=== PATIENT | female | born 1950 | race Caucasian/White ===

== ENCOUNTER → 2023-12-01 12:52 | Outpatient (REF) | payer MEDICARE, OTHER, SELFPAY ==
[2023-12-01 15:43] LABS: ALT (SGPT) 22 U/L (0-35); AST (SGOT) 33 U/L (14-36); Albumin 3.9 g/dl (3.5-5.0); Alkaline Phosphatase 73 U/L (38-126); Direct Bilirubin 0.9 mg/dl (0.0-0.4); Total Bilirubin 0.9 mg/dl (0.2-1.3); Total Protein 6.8 g/dl (6.3-8.2)
== END ==
LOC: HWLAB 12:52
PROVIDERS: ATTENDING PHYSICIAN Student in an Organized Health Care Education/Training Program; FAMILY PHYSICIAN Family Medicine
DX: I27.0 Primary pulmonary hypertension (principal)
CPT/HCPCS: 36415; 80076

== ENCOUNTER → 2023-12-30 12:39 | Outpatient (REF) | payer MEDICARE, OTHER, SELFPAY ==
[2023-12-30 15:56] LABS: ALT (SGPT) 19 U/L (0-35); AST (SGOT) 21 U/L (14-36); Albumin 3.6 g/dl (3.5-5.0); Alkaline Phosphatase 102 U/L (38-126); Direct Bilirubin 0.1 mg/dl (0.0-0.4); Total Bilirubin 0.3 mg/dl (0.2-1.3); Total Protein 6.5 g/dl (6.3-8.2)
== END ==
LOC: HWLAB 12:39
PROVIDERS: ATTENDING PHYSICIAN Student in an Organized Health Care Education/Training Program; FAMILY PHYSICIAN Family Medicine
DX: E07.9 Disorder of thyroid, unspecified (principal); I27.0 Primary pulmonary hypertension
CPT/HCPCS: 36415; 80076; 84443

== ENCOUNTER 2024-01-04 13:28 | Inpatient (IN) | payer MEDICARE, OTHER, SELFPAY ==
[2024-01-04] VITALS (31 sets, daily range): BP systolic 72–153; BP diastolic 39–98; BMI 24.9; BMI 23.2
[2024-01-04 11:46] LABS: Glucose - Point of Care 288 mg/dl (70-99)
[2024-01-04 11:58] LABS: % Basophils 0.4 % (0-2); % Eosinophils 0.1 % (0-6); % Immature Granulocytes 4.7 % (0-0.5); % Lymphocytes 17.1 % (20.5-51.1); % Monocytes 3.7 % (1.7-9.3); Absolute Basophils 0.1 10^3/uL (0-0.2); Absolute Immature Granulocytes 0.7 10^3/uL (0-0.05); Absolute Lymphocytes 2.6 10^3/uL (1.2-3.4); Absolute Monocytes 0.6 10^3/uL (0.1-0.6); Absolute Neutrophils 11.3 10^3/uL (1.4-6.5); Hematocrit 41.1 % (37.0-47.0); Hemoglobin 12.6 g/dL (12.0-16.0); Mean Corp Hgb Conc. 30.7 g/dL (33.0-37.0); Mean Corpuscular Hgb 28.6 pg (27.0-31.0); Mean Corpuscular Volume 93.4 fL (81.0-99.0); Nucleated Red Blood Cells % 0 %; Platelet Count 323 10^3/uL (130-400); Red Cell Dist. Width 14.9 % (11.5-14.5); White Blood Cell Count 15.2 10^3/uL (4.8-10.8)
--- NOTE | 2024-01-04 11:58 | ED.GENMED ---
History of Present Illness
General
Chief Complaint: CODE
Source: ambulance crew
Time Seen by Provider: 01/04/24 11:51
Travel History
Have you had any contact with someone who has COVID-19?: No
Do you have any symptoms of coronavirus? Fever > 100 degrees, chills, cough, shortness of breath, sore throat, loss of taste or smell, muscle aches, or headache?: No
History of Present Illness
History of Present Illness:
73-year-old female brought to the emergency room by ambulance after being found unresponsive. Circumstances surrounding the initial medical events are unclear as paramedics state the was in no position to provide any history. However when
the paramedics arrived police were providing CPR. A pulse check identified a pulse. CPR was discontinued but the patient had agonal respirations per the medics. Therefore endotracheal intubation was performed without any sedation. Initial
end-tidal CO2 was in the 80s. Paramedics transported the patient and state that during transport she did have some biting of the tube. Medics arrived with a list of medications. But again they are unable to provide any significant history. No
family available. I did call the phone number listed for the patient's Louie Ashraf, and left a message.
Past History
Past History
ED Past Medical History: COPD, GERD, Hypercholesterolemia, Hypothyroidism, Psychiatric (Generalized anxiety disorder), Other (Recurrent falling, nephrolithiasis, pulmonary hypertension, avascular necrosis) and Other (Headaches, paresthesias,
dizziness, balance difficulty, chronic back and neck pain, chronic chest pain, stomach ulcers, irritable bowel syndrome, hiatal hernia, diverticulitis, osteoarthritis)
ED Past Surgical History: Cholecystectomy, Gynecological (Tubal ligation), Orthopedic (Bilateral hip replacements, right shoulder surgery), Tonsilectomy (Tonsillectomy and adenoidectomy) and Other (Hemorrhoidectomy)
Social History
Tobacco: Former smoker
Alcohol: None
Drug: None
Personal:
Living: with family
Employment: Retired
Family History
Family History: Other (Reviewed and noncontributory)
Phy Exam
Physical Exam
Physical Exam:
General: Unresponsive, minimal respiratory effort
Vitals: Tachycardic in the 130s
Head: Atraumatic
Eyes: Pupils equal, EOMI
Throat: Orally intubated
Neck: Trachea midline
Lungs: Decreased breath sounds bilaterally, x-ray wheezing bilaterally
Heart: Regular rate, no murmurs
Abd: Soft, Nontender, No pulsatile mass
Neuro: No spontaneous movement
Skin: Warm, dry, no rash
Extremities: pulses equal b/l, intraosseous needles bilateral tibia. No significant edema.
Course
Orders/Labs/Results
Orders:
Orders
01/04/24 11:40
Electrocardiogram (*1) Urgent
Reason for Study: Chest Pain
Cardiac Monitoring- Treatment ONCE
EKG- Treatment ONCE
IV Insert/Care/Rem.- Treatment PRN
O2 Therapy [RESP] Urgent
Titrate/Wean O2 to maintain O2 sat greater than (%): 90
Special Instructions: Maintain sats >/=90%
Pulse Ox/spot Check [RESP] Urgent
Quantity: 1
Special Instructions: ON ROOM AIR
01/04/24 11:43
Portable Chest Xray [CR Chest Portable - 1 View] Stat
Comment:
Reason For Exam: ROSC
Reason Study Needs to be Portable: Patient Unstable
01/04/24 11:45
Complete Blood Count/With Diff Urgent
Comprehensive Metabolic Panel Urgent
Triglycerides Urgent
Troponin I Urgent
01/04/24 11:52
Albuterol Sulfate [Ventolin Nebules] 7.5 mg INH R NOW STA
Dexamethasone Sod Phosphate [Decadron] 10 mg IV NOW STA
[place] Catheter [Catheter- Indwelling] As Directed
Reason for insertion: I&O's Critical Care
Assess insertion reason daily.Remove if no longer applicable: Yes
01/04/24 11:53
FentaNYL 1,000 MCG/100 ML [Sublimaze] 1,000 mcg in 100 ml IV NOW
Indication:: Light Sedation
Begin Infusion:: Now
Goal:: pain score </= 1, CPOT 0-2
Maximum dose in mcg/hr:: 300
Continue currently infusing dose and titrate:: Yes
Titration Instructions:: Titrate every 30 minutes if patient exhibits signs of pain or discomfort
Titration Instructions:: (pain score >/= 2, CPOT >/= 3).
Titration Instructions:: Administer bolus dose and increase infusion by 25 mcg/hr.
Taper Instructions:: If pain score at goal for 4 consecutive hours (pain score </= 1, CPOT 0-2)
Taper Instructions:: decrease infusion by 50 mcg/hr every 2 hours.
Taper Instructions:: When dose </= 50 mcg/hr may turn infusion off and consider PRN
Taper Instructions:: intermittent bolus doses only.
Over-sedation Instructions:: If CPOT 0-2 (goal) and RASS -3 to -5 (below goal) decrease sedative by 50%
Over-sedation Instructions:: first. If pain score remains at goal and RASS remains below goal in 1 hour,
Over-sedation Instructions:: decrease opioid infusion by 50%.
Notify provider:: immediately if pt exhibits: chest wall rigidity, hemodynamic instability,
Notify provider:: agitation/pain despite maximum dosing, pain when RASS below goal.
Additional Instructions:: Patient MUST be mechanically ventilated.
Fentanyl Citrate/Pf [Sublimaze] 50 mcg IV [id number] PRN
Fentanyl Citrate/Pf [Sublimaze] 60 mcg IV NOW STA
01/04/24 11:56
CT Head W/o Iv Contrast Urgent
Comment:
Reason For Exam: altered mental status
Venous Blood Gas Urgent
%Oxygen/Room Air: 100
01/04/24 12:14
CT Chest Pe Study Urgent
Comment:
Reason For Exam: resp arrest
01/04/24 12:16
Propofol 1,000,000 Mcg/100 ml [Diprivan] 1,000,000 mcg in 100 ml IV NOW
Indication:: Light Sedation
Begin Infusion:: Now
Goal:: RASS 0 to -2
Maximum dose in mcg/kg/min:: 50
Initial dose based on RASS:: Yes
If RASS is:: +1 or pt hemodynamically unstable (SBP < 90mmHg), initiate at 10 mcg/kg/min
If RASS is:: +2, initiate at 20 mcg/kg/min
If RASS is:: greater than or equal to +3, initiate at 30 mcg/kg/min
Titration Instructions:: Titrate by 5-10 mcg/kg/min every 5 minutes until RASS 0 to -2 achieved.
Taper Instructions:: If RASS is at or below goal for 4 consecutive hours decrease infusion by
Taper Instructions:: 5-10 mcg/kg/min every 2 hours to off.
Over-sedation Instructions:: If CPOT 0-2 (at goal) AND RASS -3 to -5 (below goal) decrease sedative by
Over-sedation Instructions:: 50% first. If pain score remains at goal and RASS remains below goal in
Over-sedation Instructions:: 1 hour, decrease opioid infusion by 50%.
Notify provider:: immediately if patient exhibits signs/symptoms of propofol-related
Notify provider:: infusion syndrome.
Additional Instructions:: Patient MUST be mechanically ventilated and MUST receive analgesia.
01/04/24 12:17
Propofol 1,000,000 Mcg/100 ml [Diprivan] 1,000,000 mcg in 100 ml .ROUTE .STK-MED
01/04/24 12:24
Add On- LAB Urgent
Tests Added?: triglicerides
01/04/24 12:44
0.9% Sodium Chloride 1000 ml [Nss] 1,000 ml IV BOLUS
01/04/24 12:56
Admit/Transfer Patient As Directed
Co-Sign Provider:
Level of Care: Inpatient admission
Assign to:: ICU
Physician / Group: Hospitalist
Diagnosis: Respiratory failure
Reason for Hospitalization: .
Expected length of stay greater than two midnights?: Yes
ELOS- Estimated Length of Stay in days: 3
I certify the patient meets the requirements for IP care: Yes
01/04/24 13:26
PTT Urgent
Prothrombin Time Urgent
01/04/24 13:52
Consult Electrical Project Manager [Electrical Project Manager Consult] Routine
Consulting Provider: Priscila Phillips
Was physician already notified: Yes
Reason for consult: Respiratory failure
DX Deep Vein Thrombosis Video Routine
01/04/24 16:00
Heparin 5,000 units SC Q8
Abnormal Lab Results
01/04/24 01/04/24
11:45 11:56
WBC 15.2 H 10^3/uL
(4.8-10.8)
MCHC 30.7 L g/dL
(33.0-37.0)
RDW 14.9 H %
(11.5-14.5)
MPV 11.0 H fL
(7.4-10.4)
Abs Immat Gran (auto) 0.7 H 10^3/uL
(0-0.05)
Absolute Neuts (auto) 11.3 H 10^3/uL
(1.4-6.5)
Immature Gran % 4.7 H %
(0-0.5)
Lymphocytes % 17.1 L %
(20.5-51.1)
VBG pH 7.27 L
(7.32-7.43)
VBG pO2 211 H mmHg
(30-50)
VBG HCO3 21.6 L mmol/L
(22-27)
Sodium 134 L mmol/L
(135-145)
Potassium 5.9 H mmol/L
(3.5-5.1)
Chloride 108 H mmol/L
(98-107)
Carbon Dioxide 19 L mmol/L
(22-30)
BUN 18 H mg/dl
(7-17)
Glucose 292 H mg/dl
(70-99)
AST 49 H U/L
(14-36)
ALT 36 H U/L
(0-35)
Alkaline Phosphatase 140 H U/L
(38-126)
Triglycerides 195 H mg/dl
(10-149)
POC Glucose 288 H mg/dl
(70-99)
01/04/24 11:45
01/04/24 11:45
Vital Signs
Initial and Last Documented VS:
Initial Vital Signs
Pulse Resp BP
130 14 127/94
01/04/24 11:41 01/04/24 11:41 01/04/24 11:41
Last Documented Vital Signs
Temp Pulse Resp BP Pulse Ox
98.2 F 97 20 81/64 99
01/04/24 13:02 01/04/24 13:30 01/04/24 13:30 01/04/24 13:30 01/04/24 14:11
MDM/Problems Addressed
Differential Diagnosis Includes:
Pneumothorax, PE, COPD exacerbation, pneumonia
MDM/Problems Addressed:
Patient arrives intubated with decreased mental status. On exam she clearly has expiratory wheezing and increased expiratory time. Will provide inline albuterol nebs to the ventilator. 10 mg of IV Decadron ordered. Portable chest x-ray does not
show evidence for pneumothorax or pneumonia. We will obtain a CT of the head as well as the chest to evaluate for acute central nervous event or PE. Initial labs show an elevated white blood cell count which is consistent with steroid use. Renal
function is adequate. Patient does have an elevated potassium level however she also likely has a respiratory/metabolic acidosis given her respiratory arrest and/or cardiac arrest. Therefore the hyperkalemia very well may resolve with just
supportive care. Patient did begin to fight the vent some. She is moving upper extremities. We will use fentanyl and propofol for sedation. Chest x-ray did show the ET tube to be in adequate position.
Patient's family did arrive and the states patient was doing fairly well recently. She did complain of some mild increased shortness of breath over the weekend. He increased the dose of her prednisone from 5 mg a day to 20 mg a day.
However her symptoms were not very severe. This morning the heard the patient breathing noisily and grunting. When he went to check on her she was clearly in respiratory distress. She could not communicate with her. He called 911 and
while waiting for them to arrive she became more unresponsive. CPR was initiated by police.
*Radiology
Radiology exam reviewed: preliminary read by ED provider (ET tube in good position, no obvious infiltrates my independent review)
*Pulse Oximetry
Patient hypoxic: no
*EKG
Interpreted by ED Provider?: Yes
Heart Rate: 131
Rate: tachycardiac
Rhythm: sinus tachycardia
Interval: other (Left anterior hemifascicular block)
Ischemia: non-specific ST changes
*Senior Compliance Officer Interpretation
Rate: tachycardiac
Rhythm: sinus tachycardia
*Critical Care Note
Total Time (30-74mins, 75-104mins- exclusive of procedures): 40 min
comment:
Critical care statement: A total of 40 minutes of critical care time was provided for this patient. This includes management of unstable vital signs, evaluation of the patient at bedside, reviewing the patient's pertinent medical records, discussion
with consultants, review of old EKGs and review of pertinent medical records. This time with separate from time utilized to perform the aforementioned documented procedures
Data Reviewed
Review of Other/Old Records Reveals: Records (Reviewed notes from [email or web address] during patient's last hospitalization in July 2023.) and Radiology Studies (All chest x-ray reviewed)
Patient Management
Social determinants of health affecting care: Living situation
ED Attending Note
-
Portions of this chart may have been created with voice recognition software.� Occasional wrong word or��sound alike� substitutions may have occurred due to the inherent limitations of voice recognition software.
Discharge Plan
Departure
Patient Disposition: Admit
Date of Disposition: 01/04/24
Time of Disposition: 12:49
Admit to: ICU
Presentation/result/management discussed w/ accepting MD/DO: Hospitalist
Condition: Serious
Discharge Problem:
Respiratory failure, Metabolic acidosis, Acute hyperkalemia
Interventions
Interventions:
*Risk Screen - Suicide Last Done: 01/04/24 11:50
*General Assessment Last Done: 01/04/24 11:50
*Neglect/Abuse Screening Last Done: 01/04/24 11:50
ED- Fall Risk Assessment Last Done: 01/04/24 11:50
*ED COVID-19 Vaccine History Last Done: 01/04/24 11:50
*Nursing Disposition Last Done: 01/04/24 14:00
ED- Cardiac Assessment Last Done: 01/04/24 11:50
ED- Pulmonary Assessment Last Done: 01/04/24 11:50
Discharge Date and Time
Discharge Date/Time: 01/04/24 14:01
[2024-01-04] MEDS: DECADRON 10 MG IV (11:59)
[2024-01-04] MEDS: SUBLIMAZE 60 MCG IV (11:59)
[2024-01-04] MEDS: SUBLIMAZE 100 IV ×2 (12:00→21:27)
[2024-01-04 12:16] LABS: ALT (SGPT) 36 U/L (0-35); AST (SGOT) 49 U/L (14-36); Albumin 3.8 g/dl (3.5-5.0); Alkaline Phosphatase 140 U/L (38-126); Blood Urea Nitrogen 18 mg/dl (7-17); Calcium 8.8 mg/dl (8.4-10.2); Carbon Dioxide 19 mmol/L (22-30); Chloride 108 mmol/L (98-107); Glucose 292 mg/dl (70-99); Potassium 5.9 mmol/L (3.5-5.1); Sodium 134 mmol/L (135-145); Total Bilirubin 0.5 mg/dl (0.2-1.3); Total Protein 6.4 g/dl (6.3-8.2); eGFR > 60.00
[2024-01-04 12:18] LABS: Venous Blood Gas B.E. -5.4 mmol/L (-4 to +4); Venous Blood Gas HCO3 21.6 mmol/L (22-27); Venous Blood Gas O2 Sat % 99.1 %; Venous Blood Gas pCO2 47 mmHg (35-48); Venous Blood Gas pH 7.27 (7.32-7.43); Venous Blood Gas pO2 211 mmHg (30-50)
[2024-01-04] MEDS: VENTOLIN NEBULES 7.5 MG INH (12:22)
[2024-01-04] MEDS: DIPRIVAN 100 IV (12:22)
[2024-01-04 12:24] LABS: Troponin I 0.013 ng/ml
[2024-01-04 12:45] LABS: Triglycerides 195 mg/dl (10-149)
[2024-01-04] MEDS: SUBLIMAZE 50 MCG IV ×3 (12:53→16:18)
[2024-01-04] MEDS: NSS 1000 IV ×2 (12:53→14:38)
--- NOTE | 2024-01-04 12:56 | HPS.HSE ---
Family Physician
-
Family Physician: NO INTERVIEW UNKNOWN
Chief Complaint
-
Sudden respiratory arrest on home
History of Present Illness
53 years old female came through the ambulance from home. History taken from the who witnessed the respiratory arrest at home. Patient has history of asthma and pulmonary hypertension. On 2 L oxygen at home. Uses nebulizer although she
does not like them. She takes 5 mg prednisone every day. gave her 20 mg in last 2 days after noticing shortness of breath. He was in different room when he heard her gasping. He went to the room when she was nonresponsive but conscious.
He increased her oxygen and put her flat on the floor and called 911. There was an attempt of chest compression but no documentation of cardiac arrest. She was intubated in the field and brought into the emergency room. She was awake and
responsive in the emergency room and was given sedation.
Medical History
Past Medical History
Past Medical History: Reports Other (Hypothyroidism, GERD, stage III kidney disease, pulmonary hypertension, asthma, restless leg syndrome, seizure disorder, hypertension, hyperlipidemia, anxiety, gait dysfunction)
Past Surgical History: Reports Other (No recent major surgery)
Social History
Unable to obtain full social history at this time due to: Patient Intubation
Family History
Family History: Not pertinent
Allergies / Home Medications
Allergies reflects when Allergies were last updated in [employer].
Home Medications with original date entered in [employer]
Allergy/Medication List:
Allergies
Allergy/AdvReac Type Severity Reaction Status Date / Time
cat dander Allergy Unknown Verified 06/29/23 18:36
codeine [Codeine] Allergy Itching Verified 06/29/23 11:24
dog dander Allergy Unknown Verified 06/29/23 18:36
house dust Allergy Unknown Verified 06/29/23 18:36
mold Allergy Unknown Verified 06/29/23 18:36
tree and shrub pollen Allergy Unknown Verified 06/29/23 18:36
Home Medications
calcium carbonate 500 mg-vitamin D3 5 mcg (200 unit) tablet (Oyster Shell Calcium-Vitamin D3) 1 tab PO DAILY Supplement 11/12/21
cholecalciferol (vitamin D3) 50 mcg (2,000 unit) tablet 2,000 units PO DAILY Supplement 11/12/21
magnesium 250 mg tablet 250 mg PO DAILY Supplement 11/12/21
metoprolol tartrate 25 mg tablet 25 mg PO BID Blood pressure 11/12/21
pantoprazole 40 mg tablet,delayed release 40 mg PO BID Gastrointestinal issue 11/12/21
prednisone 2.5 mg tablet 2.5 mg PO BID Lung/breathing issues 11/12/21
sildenafil (pulm.hypertension) 20 mg tablet 20 mg PO TID pulmonary hypertension 04/24/22
folic acid 1 mg tablet 1 mg PO DAILY Supplement 01/31/23
pramipexole 0.125 mg tablet 0.125 mg PO HS Restless legs 01/31/23
pregabalin 50 mg capsule 100 mg PO QPM Pain 01/31/23
albuterol sulfate 0.63 mg/3 mL solution for nebulization 0.63 mg inhalation BID Lung/Breathing Issues 06/24/23
albuterol sulfate 90 mcg/actuation aerosol inhaler 2 puff inhalation R BIDPRN PRN sob 06/24/23
lidocaine 5 % topical patch 1 patch topical HSPRN PRN apply to lower middle back 06/24/23
metoclopramide HCl 5 mg tablet 5 mg PO TID NAUSEA/VOMITING 06/24/23
revefenacin 175 mcg/3 mL solution for nebulization (Yupelri) 175 mcg inhalation R DAILY Lung/Breathing Issues 06/24/23
simvastatin 20 mg tablet 20 mg PO HS High Cholesterol 06/24/23
aspirin 81 mg tablet,delayed release 81 mg PO QPM Blood Clot Prevention/Tx 06/29/23
hydroxyzine HCl 25 mg tablet 25 mg PO Q4HPRN PRN vertigo, itching, nausea 06/29/23
meclizine 25 mg tablet 25 mg PO Q8H PRN dizziness #30 tabs 07/01/23
prednisone 10 mg tablet 10 mg PO DAILY copd #21 tabs 07/01/23
sennosides 8.6 mg capsule (senna) 8.6 mg PO BID Constipation #60 caps 07/01/23
ascorbic acid (vitamin C) 500 mg tablet (Vitamin C) 500 mg PO DAILY Supplement 01/04/24
bosentan 62.5 mg tablet 62.5 mg PO BID pulmonary hypertension 01/04/24
docusate sodium 100 mg capsule 100 mg PO DAILY Constipation 01/04/24
hydromorphone 4 mg tablet 4 mg PO QID Pain 01/04/24
levothyroxine 75 mcg tablet 75 mcg PO DAILY@0700 01/04/24
lorazepam 1 mg tablet 1 mg PO QID anxiety 01/04/24
ondansetron HCl 8 mg tablet 8 mg PO DAILY PRN nausea 01/04/24
oxycodone 10 mg tablet,crush resistant,extended release 12 hr (OxyContin) 10 mg PO Q12 pain 01/04/24
polyethylene glycol 3350 17 gram oral powder packet (Miralax) 17 g PO DAILY PRN Constipation 01/04/24
sucralfate 1 gram tablet 1 g PO AC Gastrointestinal Issue 01/04/24
Review of Systems
-
Unable to obtain full review of systems at this time due to: Patient Intubation
Physical Exam
Vital Signs
Vital Signs
Pulse Resp BP Pulse Ox
106 20 87/63 100
01/04/24 12:25 01/04/24 12:25 01/04/24 12:25 01/04/24 12:25
Physical Exam
General: Intubated
HEENT: Moist mucous membranes, Atraumatic, [place] Conjunctivae, No Ptosis, Nose Appears Normal and Ears Appear Normal
Respiratory: Decreased Breath Sounds
Cardiac: Regular Rhythm
GI: Soft, Non Tender and Non Distended
Rectal: No Maroon Stools
Genito-urinary: No costovertebral tender
Musculoskeletal: No Clubbing, No Cyanosis and No Edema
Skin: Warm; No Jaundice
Neuro: Sedated
Psych: No Agitated
Laboratory Results
-
01/04/24 11:45
01/04/24 11:45
Laboratory Results
Total Bilirubin 0.5 mg/dl (0.2-1.3) 01/04/24 11:45
AST 49 U/L (14-36) H 01/04/24 11:45
ALT 36 U/L (0-35) H 01/04/24 11:45
Alkaline Phosphatase 140 U/L (38-126) H 01/04/24 11:45
Troponin I 0.013 ng/ml 01/04/24 11:45
Impression/Plan
-
IMPRESSION:
73 years old female went into respiratory failure at home and was intubated at home
#Acute on chronic hypoxic respiratory failure
Admit the patient to the intensive care unit. ABG on arrival venous blood gas 7.27/47/pO2 211
Will do ABG and adjust vent setting. Currently on 40% FiO2
Chest imaging studies not consistent with acute infiltration but atelectasis.
Patient has history of asthma pulmonary hypertension with chronic hypoxic respiratory failure on 2 L oxygen
Start the patient on IV steroid therapy. Continue with nebulizer therapy.
Scan of the chest showed no pulmonary embolism.
Primary corporate scheduler Dr. Gan at [facility]
Will consult battery tester/pulmonary doctor
# History of pulmonary artery hypertension
Continue with nebulizer and oxygen support. Continue with home medication, will verify them.
#History of generalized anxiety disorder. Continue with benzodiazepine. According to records, she takes lorazepam 1 mg 4 times a day
#GERD, will give PPI, as needed Reglan
#Hypothyroidism
#Leukocytosis, will do blood culture. Suspect reactive to recent higher dose of prednisone
# Chronic gait dysfunction. Uses walker at home.
#Chronic pain with narcotic dependence/ Fibromyalgia
Patient takes oxycodone 10 mg twice a day. She is also on Lyrica
# DVT prophylaxis
Total time spent to see the patient, examine the patient on the floor, review data and lab results, discuss treatment plan with patient, nursing staff and ER doctor around 75 minutes
--- NOTE | 2024-01-04 13:26 | EDRN ---
report called to MADISON Magallon in ICU. all questions answered.
[2024-01-04 13:47] LABS: INR 1.13; PT 14.5 Sec (11.4-14.6)
[2024-01-04 13:48] LABS: APTT 25.4 Sec (23.4-35.0)
--- NOTE | 2024-01-04 14:06 | PTCARENOTE ---
arrived ICU 3369, ETT to vent, reyes changed, tolerating settings. awake, responsive, nods/ yes and no.
[2024-01-04 14:39] LABS: B.E. -2.5 mmol/L; HCO3 22.5 mmol/L (21-28); O2 Saturation % 98.8 % (94-98); PCO2 39 mmHg (32-35); PO2 125 mmHg (83-108); pH 7.37 (7.35-7.45)
--- NOTE | 2024-01-04 14:45 | CON.INTV ---
Consultation
Consultation Request
Date/Time Consultation Requested: 13:00
Date/Time Consultation Performed: 13:00
Medical History
-
Chief Complaint: Acute respiratory distress
History of Present Illness:
73 years old female with hx of asthma, COPD on 2L O2 at home, HTN, Pulmonary HTN, CKD, presented to the ED via EMS following respiratory arrest at home. Per EMS, She was found by her , conscious but unresponsive and gasping. He increased her
oxygen, laid her down flat on the floor and called 911. Of note, she is on 5mg prednisone daily but gave her 20 mg in the past 2 days after noticing shortness of breath.�Police provided CPR at the home, and paramedics noted agonal breathing
after it was discontinued. She was intubated and There was an attempt of chest compression but no documentation of cardiac arrest.� She was intubated in the field and brought into the emergency room.� She was awake and responsive in the emergency
room, sedated and transferred to ICU.
Past Medical History
Past Medical History: Asthma, COPD, GERD, HTN, Hypercholesterolemia, Hypothyroidism, Seizures, Psychiatric (anxiety, cognitive impairment) and Other (Pulmonary hypertension, CKD, overactive bladder, constipation)
Past Surgical History: Orthopedic
Social History
Tobacco: Non-smoker
Alcohol: None
Drug: None
Personal:
Living: With Family
Family History
Family History: Other (not pertinent)
Allergies / Home Medications
Allergies
Allergy/AdvReac Type Severity Reaction Status Date / Time
cat dander Allergy Unknown Verified 06/29/23 18:36
codeine [Codeine] Allergy Itching Verified 06/29/23 11:24
dog dander Allergy Unknown Verified 06/29/23 18:36
house dust Allergy Unknown Verified 06/29/23 18:36
mold Allergy Unknown Verified 06/29/23 18:36
tree and shrub pollen Allergy Unknown Verified 06/29/23 18:36
Home Medications
Medication Instructions Recorded Confirmed Last Taken Type
calcium carbonate 500 mg-vitamin 1 tab PO DAILY Supplement 11/12/21 01/04/24 06/29/23 History
D3 5 mcg (200 unit) tablet (Oyster
Shell Calcium-Vitamin D3)
cholecalciferol (vitamin D3) 50 2,000 units PO DAILY Supplement 11/12/21 01/04/24 06/29/23 History
mcg (2,000 unit) tablet
magnesium 250 mg tablet 250 mg PO DAILY Supplement 11/12/21 01/04/24 06/28/23 History
metoprolol tartrate 25 mg tablet 25 mg PO BID Blood pressure 11/12/21 01/04/24 06/29/23 History
pantoprazole 40 mg tablet,delayed 40 mg PO BID Gastrointestinal issue 11/12/21 01/04/24 06/29/23 History
release
prednisone 2.5 mg tablet 2.5 mg PO BID Lung/breathing issues 11/12/21 01/04/24 06/29/23 History
sildenafil (pulm.hypertension) 20 20 mg PO TID pulmonary hypertension 04/24/22 01/04/24 06/29/23 History
mg tablet
folic acid 1 mg tablet 1 mg PO DAILY Supplement 01/31/23 01/04/24 06/28/23 History
pramipexole 0.125 mg tablet 0.125 mg PO HS Restless legs 01/31/23 01/04/24 06/28/23 History
pregabalin 50 mg capsule 100 mg PO HS Pain 01/31/23 01/04/24 06/28/23 History
albuterol sulfate 0.63 mg/3 mL 0.63 mg inhalation BID 06/24/23 01/04/24 Unknown History
solution for nebulization Lung/Breathing Issues
albuterol sulfate 90 mcg/actuation 2 puff inhalation R BIDPRN PRN sob 06/24/23 01/04/24 06/23/23 History
aerosol inhaler
lidocaine 5 % topical patch 1 patch topical HSPRN PRN apply to 06/24/23 01/04/24 06/24/23 History
lower middle back
metoclopramide HCl 5 mg tablet 5 mg PO AC NAUSEA/VOMITING 06/24/23 01/04/24 06/29/23 History
revefenacin 175 mcg/3 mL solution 175 mcg inhalation R DAILY 06/24/23 01/04/24 06/29/23 History
for nebulization (Yupelri) Lung/Breathing Issues
simvastatin 20 mg tablet 20 mg PO HS High Cholesterol 06/24/23 01/04/24 06/28/23 History
aspirin 81 mg tablet,delayed 81 mg PO QPM Blood Clot 06/29/23 01/04/24 06/28/23 History
release Prevention/Tx
hydroxyzine HCl 25 mg tablet 25 mg PO Q4HPRN PRN vertigo, 06/29/23 01/04/24 Unknown History
itching, nausea
ascorbic acid (vitamin C) 500 mg 500 mg PO DAILY Supplement 01/04/24 01/04/24 Unknown History
tablet (Vitamin C)
bosentan 62.5 mg tablet 62.5 mg PO BID pulmonary 01/04/24 01/04/24 Unknown History
hypertension
docusate sodium 100 mg capsule 100 mg PO DAILY Constipation 01/04/24 01/04/24 Unknown History
hydromorphone 4 mg tablet 4 mg PO QID Pain 01/04/24 01/04/24 Unknown History
levothyroxine 75 mcg tablet 75 mcg PO DAILY@0700 01/04/24 01/04/24 Unknown History
lorazepam 1 mg tablet 1 mg PO QID anxiety 01/04/24 01/04/24 Unknown History
ondansetron HCl 8 mg tablet 8 mg PO DAILY PRN nausea 01/04/24 01/04/24 Unknown History
oxycodone 10 mg tablet,crush 10 mg PO Q12 pain 01/04/24 01/04/24 Unknown History
resistant,extended release 12 hr
(OxyContin)
polyethylene glycol 3350 17 gram 17 g PO DAILY PRN Constipation 01/04/24 01/04/24 Unknown History
oral powder packet (Miralax)
sucralfate 1 gram tablet 1 g PO AC Gastrointestinal Issue 01/04/24 01/04/24 Unknown History
Review of Systems
-
Unable to Obtain full review of systems at this time due to: Patient Intubation
Vitals / Labs / Diagnostic Testing
Vital Signs
Temp Pulse Resp BP Pulse Ox
96.2 F L 97 20 81/64 99
01/04/24 14:23 01/04/24 13:30 01/04/24 13:30 01/04/24 13:30 01/04/24 14:11
Lab Data
01/04/24 11:45
01/04/24 11:45
Laboratory Results
01/04/24 01/04/24
13:26 14:22
PT 14.5
INR 1.13
APTT 25.4
pH 7.37
pCO2 39 H
pO2 125 H
HCO3 22.5
O2 Delivery Level
Diagnostic Testing:
Assessment
-
Acute hypoxic respiratory failure
Ventilator dependent
Respiratory Acidosis
Sepsis
Abnormal arterial blood gas
Leukocytosis
Conditions ENVIRONMENTAL RESEARCH SCIENTIST:
Asthma
COPD
Hypothyroid
HTN
Pulmonary HTN
CKD
GERD
Neuro:
CT showed no acute intracranial process
Possible baseline cognitive impairment
Recent history of fall with head trauma (December 2022)
Pain and sedation: Fentanyl + propofol for sedation. Ativan, Oxycodone, Dilaudid per home pain mangement
Cardiovascular:
Continue Metoprolol Tartrate
Continue Aspirin, Statin
EKG showed tachycardia, inverted T-waves in lateral leads
Pro BNP 185, Trop 0.013
Pulm:
Ventilator dependent, Consider SBT
COmpensated respiratory acidosis
Continue Sildenafil
Continue home inhalers, prednisone
GI:
NG tube, currently NPO
Pantoprazole for GERD
Heme:
DVT prophylaxis Heparin SQ
ID:
WBCs: 15.2, hypothermic temp 96.2, BP 81/64
Urine, Blood Cxs pending
Bolus fluids
Renal:
Hx of CKD
eGFR >60
Creatinine 0.8
Monitor I&O
Endo:
Levothyroxine, IV
DATA:
CT head w/o contrast 01/04/2024: No acute intracranial abnormality noted.
CXR 01/04/2024: No acute cardiopulmonary process
CT chest 01/04/2024: Mild bilateral lower lobe dependent subsegmental atelectasis. No evidence of pulmonary embolism. No significant acute abnormality identified in the chest.
[2024-01-04 15:10] LABS: Urine Albumin Trace (Neg - Trace); Urine Bilirubin Negative (Negative); Urine Character Clear (Clear); Urine Color Yellow; Urine Glucose Negative (Negative); Urine Ketone Negative (Negative); Urine Leukocyte Negative (Negative); Urine Nitrite Negative (Negative); Urine Occult Blood 2+ (Negative); Urine Urobilinogen Negative (Neg - 1+)
--- NOTE | 2024-01-04 15:18 | PTCARENOTE ---
SBT initiated. propofol off, fentanyl down to 10 mcg/hr.
[2024-01-04 15:25] LABS: Urine Hyaline Cast 0-2 /LPF (0-2); Urine Squamous Cell 0-2 /LPF (Few)
[2024-01-04 15:26] LABS: Urine Bacteria Many (Negative); Urine White Cell 0-2 /HPF (0-5)
[2024-01-04 15:28] LABS: NT-proBNP 185 pg/ml
--- NOTE | 2024-01-04 16:14 | PTCARENOTE ---
pastoral care here, long discussions Dr. Phillips, family, patient. Pt very clear in wishes, no tube, no CPR, yes to pain relief.
--- NOTE | 2024-01-04 16:24 | W.PN.UPDATE ---
Update Note
Progress Note Update
Update Note:
Had a conversation with who informed me of her long history of numerous diagnoses. She was told she had MS at [facility]. He had second opinion at [place], told she had Churg Yuri and placed on prednisone. They then went to [place] and there
she was finally diagnosed with PAH and placed on medications. She notes chronic severe pain 10/10 per due to chest pain from her PAH. 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 She does follow with
pain management physicians who the states just 'ups her meds.'
He notes that she was not a good candidate for transplant due to her functional status. She has history of lung disease, unknown PFT but on chronic O2 at home. She follows with pulmonary at [facility].
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
She is intubated and awakening from sedation with plan for extubation. She is awake and aware of her situation. When asked about whether she understood that a potential cause of her resp failure was from opiate overdose she only seemed concerned
about receiving more meds. We discussed her code status including CPR and intubation and she has made this clear to me, to CCRN and to her that she does not wish to be resuscitated should something occur. She wants to be kept comfortable
and wants more pain medication.
I asked her if she wishes to be made comfort measures and placed on IV drip with an understanding that this would result in , and she agreed.
I have asked her to repeat these wishes in the presence of her which she did.
We will now proceed with terminal extubation and comfort measures.
This was reviewed with care team.
Additional critical care time 45 mins.
--- NOTE | 2024-01-04 16:35 | RESPNOTE ---
extubated pt to comfort care
placed pt on 2 lpm nasal cannula, her home base oxygen
family at bedside.
[2024-01-04] MEDS: SUBLIMAZE 100 MCG IV ×10 (16:37→23:19)
[2024-01-04] MEDS: ATIVAN 1 MG IV ×6 (17:13→23:20)
--- NOTE | 2024-01-04 17:18 | PTCARENOTE ---
extubated per pt wishes and by MD order after fentanyl bolus and infusion, see MAR for times. tolerated. eyes wide, demanding pain med, see MAR. positioned for comfort. family asking questions, pt remains awake. just med with lorazepam per
order at pt request, asking for more pain meds 'now' and 'faster'.
[2024-01-04] MEDS: NSS (PRESERVATIVE FREE) 1 ML IV ×3 (19:30→23:20)
--- NOTE | 2024-01-04 19:32 | PTCARENOTE ---
Made DNR/comfort earlier.
--- NOTE | 2024-01-04 20:00 | PTCARENOTE ---
Patient received on comfort care. Awake and talking, complaining of SOB. Fentanyl gtt infusing through #20 g in left forearm, prn fentanyl bolus and ativan given. Family at bedside. Plan of care discussed
[2024-01-05] MEDS: SUBLIMAZE 100 MCG IV ×7 (00:12→06:06)
[2024-01-05] MEDS: ATIVAN 1 MG IV ×3 (00:20→04:58)
[2024-01-05] MEDS: NSS (PRESERVATIVE FREE) 1 ML IV ×2 (00:20→04:58)
--- NOTE | 2024-01-05 00:41 | PTCARENOTE ---
patients respiratory rate increasing, accessory muscle use present, medicated per MAR, fentanyl gtt increased
[2024-01-05] MEDS: NSS (PRESERVATIVE FREE) 10 ML IV (03:12)
[2024-01-05] MEDS: SUBLIMAZE 100 IV (03:17)
--- NOTE | 2024-01-05 06:00 | PTCARENOTE ---
Patient tachycardic, tachypneic, increased accessory muscle use, not time yet for bolus dose of fentanyl, notified Juan TORREZ, order received for one time dose with good effect
--- NOTE | 2024-01-05 06:36 | PTCARENOTE ---
Addendum entered by Milagros Hudson RN 01/05/24 06:41:
Patient at 0613, remains at bedside
Original Note:
Patient , remains at bedside.
--- NOTE | 2024-01-05 06:40 | W.PN.DEATH ---
Addendum entered and electronically signed by LORE Jiménez 01/05/24 07:52:
Over Hauler Helper contacted per protocol.
Original Note:
Pronouncement of
-
Called to see patient to pronounce.
No spontaneous heart tones or respirations noted.
Patient not responsive to verbal stimuli.
Patient is pronounced .
Time of : 06:13
Date of : 01/05/24
Cause of : Acute on chronic hypoxic respiratory failure, pulmonary artery hypertension, Leukocytosis, generalized anxiety disorder, Hypothyroidism.
Family Notified: Yes ( at bedside )
--- NOTE | 2024-01-05 08:57 | W.DCSUMMARY ---
Discharge Summary
Discharge Data
Date of Admission: 01/04/24
Date of Discharge: 01/05/24
-
Pending Results: No
Hospital Course
73 years old female admitted with respiratory failure. Patient was home at usual status when found her gasping for air and unresponsive. Ambulance was called and she was intubated in the field. reported that she was taking her
usual medications including opioids and prednisone. Patient had limited functional status at home and relied on her as a caregiver. Patient was found to have acute hypercapnic and hypoxic respiratory failure. She had history of chronic
respiratory failure and on home oxygen. She had history of pulmonary hypertension, asthma according to the . Patient was admitted to the intensive care unit. Patient was awake and responsive but she reported pain. She was started on
fentanyl drip but required higher doses to get her pain under control. At some point, patient pointed that pain was related to the endotracheal tube. Patient was awake and following commands. Troponin was negative. Respiratory failure was felt
to be induced by opioid use in patient with pre-existing severe lung disease. Electrocardiogram showed sinus tachycardia. She was evaluated by radio operator. Patient did not have history of fever or sick contact. The plan was to do extubation when
patient started to wake up and follow commands. CODE STATUS was discussed with the patient and family. Patient was DO NOT RESUSCITATE. Patient had same CODE STATUS(DNR) during previous hospital admission. Real Estate Broker Associate had a conversation with the
family and patient regarding goal of care. Patient expressed her wishes to pursue comfort care with pain control knowing that would highly likely result in . Patient was clear in expressing her wishes. Family was informed and they were
present at bedside and they wanted to emili patient's wishes. Patient was extubated and started on comfort care measures. Patient peacefully on December.
Discharge Plan
-
Patient Disposition:
Date/Time
Date/Time: 01/05/24 06:13
--- NOTE | 2024-01-05 09:16 | PTCARENOTE ---
family support given, in to say good bye. postmortem care, IV sites out, wrapped, tagged.
--- NOTE | 2024-01-05 09:26 | PTCARENOTE ---
analisa cuencachandana.
== END 2024-01-05 06:13 | disposition expired | DRG 208 ==
LOC: ICU 13:28
PROVIDERS: ADMITTING PHYSICIAN Internal Medicine; CONSULT PHYSICIAN Internal Medicine; EMERGENCY PHYSICIAN Emergency Medicine
PROC: 5A1935Z Respiratory Ventilation, Less than 24 Consecutive Hours (ICD-10-PCS; 2024-01-04)
DX: J96.21 Acute and chronic respiratory failure with hypoxia (principal); J98.11 Atelectasis; E87.29 Other acidosis; J44.1 Chronic obstructive pulmonary disease with (acute) exacerbation; J96.22 Acute and chronic respiratory failure with hypercapnia; G89.29 Other chronic pain; I27.21 Secondary pulmonary arterial hypertension; I12.9 Hypertensive chronic kidney disease with stage 1 through stage 4 chronic kidney disease, or unspecified chronic kidney disease; E03.9 Hypothyroidism, unspecified; N18.9 Chronic kidney disease, unspecified; T40.601A Poisoning by unspecified narcotics, accidental (unintentional), initial encounter; Z66 Do not resuscitate; Z79.891 Long term (current) use of opiate analgesic; Z79.82 Long term (current) use of aspirin; Z87.891 Personal history of nicotine dependence
CPT/HCPCS: 36600; 51702; 70450; 71045; 71275; 80053; 81003; 81015; 82805; 82962; 83880; 84478; 84484; 85025; 85610; 85730; 87040; 87077; 87086; 87147; 87186; 87205; 93005; 94002; 94644; 96365; 96366; 96367; 96375; 99291; Q9967